=== PATIENT | female | born 2000 | race Caucasian/White ===

== ENCOUNTER 2020-01-24 10:33 | Emergency (ER) | payer MEDICAID, SELFPAY ==
--- NOTE | 2020-01-24 | XR_ITS ---
EXAMINATION: XR TIBIA AND FIBULA, LEFT CLINICAL INFORMATION: Injury. COMPARISON: None TECHNIQUE: AP and lateral views of the left tibia and fibula were obtained. FINDINGS: Alignment is normal at the knee and ankle. The talar dome is well-positioned within the intact ankle mortise. The tibia and fibula are intact. No knee joint effusion. There is minimal soft tissue stranding in the pretibial area of the lower leg. No radiopaque foreign body or soft tissue gas in this area. IMPRESSION: * Minimal soft tissue swelling in the pretibial region of the lower leg. * Bones are normal. No tibia fracture.
[2020-01-24 11:03] VITALS: BP 95/60; PULSE 79; RESP 18; TEMP 36.6; O2SAT 95; BMI 23.1
[2020-01-24 12:00] VITALS: BP 118/77; PULSE 66; RESP 18; TEMP 36.6; O2SAT 100
--- NOTE | 2020-01-24 18:30 | ED.LOWEXIN ---
HPI - Extremity Injury (Lower) General Chief Complaint: Extremity Injury, Lower Stated Complaint: Loo injury work Time Seen by Provider: 01/24/20 11:20 History of Present Illness HPI Narrative: patient was at work this morning and hit her left loo into a metal object and comes here limping and complaining of pain in the left loo, pain is mild and this occurred 3 hours ago Related Data Allergies Allergy/AdvReac Type Severity Reaction Status Date / Time No Known Allergies Allergy Verified 01/24/20 11:03 [No Known Allergies*] Review of Systems Review of Systems: no numbness no weakness no paresthesias no other injury, no shortness of breath, no dizziness PMFSH Past Medical History Source: nursing notes reviewed Medical History (Updated 01/24/20 @ 12:34 by SAJI Montanez) No known health problems Social History Social History Alcohol intake: current Alcohol intake frequency: holidays/special occasions only Alcohol type: hard liquor Smoking Status: Never smoker Use of substances other than those prescribed or required for medical reasons: Yes Substance Use Type: Marijuana Substance Use Frequency: Weekly Advance Directives: No Advance Directives Information Provided: No Physical Exam Vital Signs: Vital Signs: Vital Signs Temp Pulse Resp BP Pulse Ox 01/24/20 12:00 98 F 66 18 118/77 100 01/24/20 11:03 98 F 79 18 95/60 95 Body Mass Index 23.1 general appearance is no acute distress, A&O x3, comfortable appearing and ambulates with slight limp Neck is supple Respiratory no respiratory distress Extremities left anterior lower leg has a small abrasion and there is tenderness and mild ecchymosis in the area but there is full range of motion in the ankle and the knee Neuro no focal deficit Course Course Course Narrative: x-ray of left lower leg was normal Discharge Plan Discharge Clinical Impression: Contusion of left leg Qualifiers: Encounter type: initial encounter Qualified Code(s): S80.12XA - Contusion of left lower leg, initial encounter Patient Disposition: Home, Self-Care Additional Instructions: x-ray of the leg was normal Most likely this is a bruise which will improve rapidly If not better next week follow with [facility] for work-related injuries Return any concerns Referrals: [facility] [Provider Group] - 2 days Stand Alone Forms: Work/School Release Interventions: ED Discharge Assessment Last Done: 01/24/20 12:38 Discharge Date/Time: 01/24/20 12:40
== END 2020-01-24 12:40 | disposition home or self-care (01) ==
PROVIDERS: Emergency Provider Emergency Medicine; PCP Pediatrics
DX: S80.12XA Contusion of left lower leg, initial encounter (principal); S80.812A Abrasion, left lower leg, initial encounter; Y29.XXXA Contact with blunt object, undetermined intent, initial encounter; Y93.9 Activity, unspecified; Y92.9 Unspecified place or not applicable; Y99.0 Civilian activity done for income or pay; F12.90 Cannabis use, unspecified, uncomplicated; Z23 Encounter for immunization
CPT/HCPCS: 73590; 90471; 90715; 99284

== ENCOUNTER 2020-03-02 11:43 | Outpatient (REF) | payer MEDICAID, SELFPAY | END 2020-03-02 11:44 | disposition home or self-care (01) | LOC: HO.LAB 11:43 | PROVIDERS: PCP Pediatrics; Visit Provider Internal Medicine | DX: Z20.828 Contact with and (suspected) exposure to other viral communicable diseases (principal) | CPT/HCPCS: C9803; U0003 ==

== ENCOUNTER 2020-05-25 04:37 | Emergency (ER) | payer MEDICAID, SELFPAY ==
[2020-05-25 05:58] VITALS: BP 104/50; PULSE 84; RESP 16; TEMP 36.7; O2SAT 99; BMI 22.8
--- NOTE | 2020-05-25 06:34 | ED.GENADULT ---
HPI - General Adult General Chief complaint: Allergic Reaction Stated complaint: Allergic reaction Time Seen by Provider: 05/25/20 06:23 Source: patient Mode of arrival: ambulatory Limitations: no limitations History of Present Illness HPI narrative: 20-year-old female who presents to the emergency department for evaluation of allergic reaction secondary to topical exposure to coconut. The patient works at [employer]. 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 She has that whenever she eats anything with coconut in it her throat and mouth get very itchy. She states that her neck and face, and areas that she touched with her glove, became itchy and red. She states she had to leave work early. She came directly to the emergency department. She denied any lightheadedness, dizziness, difficulty swallowing, itchiness in her mouth, tongue swelling, lip swelling, nausea or vomiting associated with the allergic reaction. Patient states she was in her usual state of health prior to this incident. Related Data Previous Rx's Medication Instructions Recorded prednisone 60 mg PO DAILY 4 Days #12 tab 05/25/20 Allergies Allergy/AdvReac Type Severity Reaction Status Date / Time No Known Allergies Allergy Verified 01/24/20 11:03 [No Known Allergies*] Review of Systems Review of Systems: Yes all other systems are reviewed and are negative Neurologic: Reports Abnormal speech present [facility] Past Medical History [facility] Narrative: The patient has no medical problems, she is allergic to coconuts, she denies tobacco and alcohol use. She states she occasionally smokes marijuana. She denies any other drug use Medical History (Updated 05/25/20 @ 06:41 by Jayson Mendoza MD) No known health problems Surgical History (Updated 05/25/20 @ 06:00 by Daija Dorsey) No significant past surgical history Social History Social History Alcohol intake: current Alcohol intake frequency: holidays/special occasions only Alcohol type: hard liquor Smoking Status: Never smoker Substance Use Type: Marijuana Advance Directives: No Advance Directives Information Provided: No Physical Exam Vital Signs: Vital Signs: Last Vital Signs Temp 98.0 F 05/25/20 05:58 Pulse 84 05/25/20 05:58 Resp 16 05/25/20 05:58 BP 104/50 L 05/25/20 05:58 Pulse Ox 99 05/25/20 05:58 Body Mass Index 22.8 Const: General: cooperative and healthy appearing Orientation/consciousness: oriented to person and oriented to place Limitations: no limitations HENMT: Head: Yes normal to inspection, Yes normocephalic and Yes atraumatic Ears: external ears normal General nose exam: Normal external nose present Face and sinus: Yes normal facial exam Mouth: Normal oral and palatal mucosa present Throat: Yes posterior oropharynx normal Eyes: Periorbital: periorbital findings normal Eyelids: Yes eyelids normal Conjunctivae: conjunctivae normal Sclerae: sclerae normal Corneas: corneas normal Pupils: Equal, round and reactive pupils present Direct Ophthalmoscopy: normal light reflex Neck: Neck: Yes full ROM, Yes no lymphadenopathy, Yes no meningeal signs, Yes trachea midline, Yes supple and Yes other (Occasional urticaria lesion on anterior neck, blanching erythema noted) Thyroid: Thyroid normal Lymphatic: no lymphadenopathy noted Chest: Chest palpation & inspection: normal inspection of the chest and normal palpation of entire chest wall Resp: Effort & Inspection: normal respiratory effort and able to speak in complete sentences Auscultation: clear to auscultation bilaterally Cardio: Rate: regular rate Rhythm: regular rhythm Heart sounds: S1 normal heart sound present, S2 normal heart sound present and no murmurs GI: Inspection: Yes normal to inspection Palpation (GI): Soft to palpation, nontender, no guarding, not rigid and No hepatosplenomegaly present : General: Yes no CVA tenderness Back/Spine/Pelvis: Back: no CVA tenderness Skin: Lesions: no lesions Rashes: rashes noted (Urticaria, erythema, anterior neck) Wounds: no wounds Neuro: General: oriented to person, oriented to place and no meningeal signs Cranial nerves: Yes CN's II-XII intact bilaterally and Yes Equal, round and reactive pupils present Cognition (Neuro): normal cognition Speech: Abnormal speech present Motor exam (neuro): 5/5 motor strength present throughout Extrem: General: Yes normal to inspection and Yes full ROM Psych: Appearance: well kempt Mental Status: mental status grossly normal Speech and movement: Normal speech and movement present Affect: normal affect Attitude: cooperative Thought process: Normal thought process present Thought content: Normal thought content present Course Course Course Narrative: 20-year-old female with history of coconut allergy who presents emergency department for evaluation of rash to neck and itchiness after being exposed to a coconut candle at work. The patient's examination did reveal occasional urticarial lesion on her anterior neck with blanching erythema, otherwise was unremarkable. Patient was given Benadryl 25 mg orally and prednisone 60 mg orally. She was advised to take Benadryl 25-50 mg 4 times a day for the next 24 hours for itchiness, she will complete a 5 day course Benadryl 60 mg once a day. The patient was given a note to stay out of work for 1 days she can take Benadryl and she should be able to return to work for her tomorrow evening shift. She was given verbal and printed instructions on allergic reactions. Discharge Plan Discharge Clinical Impression: Allergic reaction, Urticaria Patient Disposition: Home, Self-Care Instructions: Allergies (ED) Additional Instructions: Take Benadryl 25-50 mg 4 times a day for the next 24 hours, this will help with the itchiness. You can take this be on 24 hours for itchiness but she cannot take this at work since it will make you sleepy. Take prednisone 20 mg pills, 3 pills (60 mg) once a day for 4 days. No work tonight but she should be able to work tomorrow evening. Do not take Benadryl at work since this will make you sleepy. Follow-up with your doctor in 2 days. Please return to the emergency department if your symptoms get worse or if you develop any symptoms that are concerning to you. Prescriptions: New prednisone 20 mg tablet 60 mg PO DAILY 4 Days Qty: 12 RF: 0 Stand Alone Forms: Work/School Release
[2020-05-25] MEDS: diphenhydrAMINE HCL 25 MG TABLET PO (06:50)
[2020-05-25] MEDS: predniSONE 20 MG TABLET 60 MG PO (06:51)
== END 2020-05-25 06:55 | disposition home or self-care (01) ==
PROVIDERS: Emergency Provider Emergency Medicine Emergency Medical Services
DX: L50.0 Allergic urticaria (principal)
CPT/HCPCS: 99283; Q0163

== ENCOUNTER 2021-07-13 07:08 | Emergency (ER) | payer MEDICAID, SELFPAY ==
--- NOTE | ~2021-07-13 | XR_ITS ---
EXAMINATION: XR WRIST, RIGHT CLINICAL INFORMATION: Right wrist pain near ulnar styloid tip after fall. Pain radial aspect. COMPARISON: None TECHNIQUE: PA, lateral, oblique, and scaphoid views of the right wrist. FINDINGS: There is irregularity of the waist of the scaphoid with no cortical or trabecular disruption, likely due to the normal undulation of the scaphoid. No fracture or dislocation seen. Intercarpal joint spaces are maintained. No radiopaque foreign body. XR/XR wrist RT 2V IMPRESSION: No acute osseous abnormality of the right wrist.
[2021-07-13 07:21] VITALS: BP 112/87; PULSE 82; RESP 16; TEMP 36.2; O2SAT 97; BMI 24.5
--- NOTE | 2021-07-13 07:21 | ED.UPPEXIN ---
HPI - Extremity Injury (Upper) General Chief Complaint: Extremity Injury, Upper Stated Complaint: Wrist pain Time Seen by Provider: 07/13/21 07:16 Source: patient Mode of arrival: ambulatory Limitations: no limitations History of Present Illness HPI narrative: Patient comes to the emergency room complaining of wrist pain on the right side. Patient states that the day before, her boyfriend tripped, patient held him to avoid him from falling. Patient was able to catch her own weight with her wrist against a wall. Since then her wrist has been hurting. The patient denies any other injuries Related Data Previous Rx's Medication Instructions Recorded prednisone 20 mg tablet 60 mg PO DAILY 4 Days #12 tab 05/25/20 Allergies Allergy/AdvReac Type Severity Reaction Status Date / Time No Known Allergies Allergy Verified 01/24/20 11:03 [No Known Allergies*] Review of Systems Review of Systems: Constitutional : No Weight loss, No Fever, No Chills, No Night Sweats, No Fatigue, No Malaise ENT/Mouth : No Hearing loss, No Ear Pain, No Nasal Congestion, No Sinus Pain, No Hoarseness, No sore throat, No Rhinorrhea, No Swallowing Difficulty Eyes: No Eye Pain, No Swelling, No Redness, No Foreign Body, No Discharge, No Vision Changes Cardiovascular : No Chest Pain, No SOB, No Dyspnea on Exertion, No Orthopnea, No Edema, No Palpitations Respiratory : No Cough, No Sputum, No Wheezing, No Smoke Exposure, No Dyspnea Gastrointestinal : No Nausea, No Vomiting, No Diarrhea, No Constipation, No abdominal Pain, No Hematochezia, No Melena Genitourinary : no irregular bleeding, No Dysuria, No Urinary Frequency, No Hematuria, No Urinary Incontinence, No Urgency, No Flank Pain, No Urinary Flow Changes, No Hesitancy Musculoskeletal : Complaining of right wrist pain, No Myalgias, No Joint Swelling Skin : No Skin Lesions, No rash Neuro : No Weakness, No Numbness, No Paresthesias, No Loss of Consciousness, No Dizziness, No Headache Psych : No Anxiety/Panic, No Depression, No SI/HI/AH/VH, No Social Issues, Heme/Lymph: No Bruising, No Bleeding,No Lymphadenopathy Endocrine : No Polyuria, No Polydipsia, No Temperature Intolerance PMFSH Past Medical History Medical History No known health problems Surgical History No significant past surgical history Social History Social History Alcohol intake: current Alcohol intake frequency: holidays/special occasions only Alcohol type: hard liquor Substance Use Type: Marijuana Advance Directives: No Advance Directives Information Provided: No Physical Exam Vital Signs: Vital Signs: Last Vital Signs Temp 97.2 F 07/13/21 07:21 Pulse 82 07/13/21 07:21 Resp 16 07/13/21 07:21 BP 112/87 07/13/21 07:21 Pulse Ox 97 07/13/21 07:21 BMI result Body Mass Index 24.5 Const: Other: Appearance: Alert. Oriented X3. No acute distress. Eyes: Pupils equal, round and reactive to light. ENT: Pharynx normal. Neck: Normal inspection. Neck supple. No lymph nodes noted. No crepitus CVS: Normal heart rate and rhythm. Pulses normal. Normal S1 and S2 Respiratory: No respiratory distress. Breath sounds normal. No Wheezing. No rales Abdomen: Soft and nontender. No rigidity. No distention. Skin: Skin warm and dry. Normal skin color. Normal skin turgor. Extremities: No lower extremity edema. Patient is able to flex and extend/abduct/adduct all fingers, patient is able to flex and extend the wrist, mild pain to palpation over the radial aspect of the wrist, no snuffbox tenderness Neuro: Oriented X 3. No motor deficit. No sensory deficit. Moving all extremities. No slurred speech. CN 2 through 12 grossly intact Psych: calm, cooperative, normal affect Course Course Course Narrative: Patient has not taking any medications in the injury happened. Patient given 1 dose of p.o. ibuprofen, x-ray pending X-rays negative for acute pathology. Patient likely has a wrist sprain MDM - Extremity Injury (Upper) Imaging Data Wrist x-ray: Radiologist's impression: There is irregularity of the waist of the scaphoid with no cortical or trabecular disruption, likely due to the normal undulation of the scaphoid. No fracture or dislocation seen. Intercarpal joint spaces are maintained. No radiopaque foreign body.? XR/XR wrist RT 2V IMPRESSION: No acute osseous abnormality of the right wrist. Discharge Plan Discharge Clinical Impression: Right wrist sprain Patient Disposition: Home, Self-Care Instructions: Wrist Sprain (ED) Prescriptions: No Action prednisone 20 mg tablet 60 mg PO DAILY 4 Days Qty: 12 0RF
== END 2021-07-13 08:15 | disposition home or self-care (01) ==
PROVIDERS: Emergency Provider Emergency Medicine
DX: S63.501A Unspecified sprain of right wrist, initial encounter (principal); W50.0XXA Accidental hit or strike by another person, initial encounter; Y93.89 Activity, other specified; Y92.9 Unspecified place or not applicable; Y99.9 Unspecified external cause status
CPT/HCPCS: 73100; 99283

== ENCOUNTER 2021-09-19 06:42 | Emergency (ER) | payer MEDICAID, SELFPAY ==
[2021-09-19 06:55] VITALS: BP 115/79; PULSE 72; RESP 18; TEMP 36.8; O2SAT 99; BMI 24.5
[2021-09-19 07:15] LABS: Appearance Urine HAZY; Color Urine YELLOW; Glucose Urine UA NEG (NEG); Leukocyte Esterase Urine 1+ (NEG); Nitrite Urine NEG (NEG); Specific Gravity - Urine >= 1.030 (1.005-1.025); UACC Culture Trigger YES; Urine Blood 1+ (NEG); Urine Ketones NEG (NEG); Urine Protein TRACE MG/DL (NEG-TRACE)
[2021-09-19 07:21] LABS: UPreg QC Valid YES; Urine Pregnancy NEGATIVE (NEGATIVE)
--- NOTE | 2021-09-19 07:28 | ED_ITS ---
HPI - General Adult General Chief complaint: General Medical Stated complaint: vaginal pain Time Seen by Provider: 09/19/21 07:28 Source: patient Mode of arrival: ambulatory History of Present Illness HPI narrative: 21-year-old female without significant past medical history of herpes but states she did have gonorrhea in her late teens who presents with the feeling of vaginal dryness and discomfort during sexual intercourse and has noted a yellowish discharge from her vagina. She discussed with her boyfriend who reports that he is having burning from his penis as well. Related Data Previous Rx's Medication Instructions Recorded prednisone 20 mg tablet 60 mg PO DAILY 4 Days #12 tab 05/25/20 doxycycline hyclate 100 mg capsule 100 mg PO BID 7 Days #14 cap 09/19/21 Allergies Allergy/AdvReac Type Severity Reaction Status Date / Time No Known Allergies Allergy Verified 01/24/20 11:03 [No Known Allergies*] Review of Systems Review of Systems: Pertinent positives and negatives as stated in HPI 10 point review of systems is otherwise negative. PMFSH Past Medical History Source: nursing notes reviewed Medical History No known health problems Surgical History No significant past surgical history Social History Social History Alcohol intake: current Alcohol intake frequency: holidays/special occasions only Alcohol type: hard liquor Substance Use Type: Marijuana Advance Directives: No Advance Directives Information Provided: Yes Physical Exam ED Vital Signs: Vital Signs - 24 hr 09/19/21 06:55 Temperature 98.2 F Pulse Rate 72 Respiratory Rate 18 Blood Pressure 115/79 Pulse Oximetry 99 BMI result Body Mass Index 24.5 VITAL SIGNS: Reviewed. GENERAL: Well developed, well nourished, in no acute distress. HEAD: Normocephalic/atraumatic EYES: PERRLA, EOMI EARS: Ext canals without abnormality OROPHARYNX: no oral lesions noted, posterior pharynx clear LUNGS: Normal breath sounds. SpO2<99> CARDIOVASCULAR: Regular rate and rhythm without noted murmurs ABDOMEN: Soft, non-tender, non-distended with bowel sounds. 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 EXTREMITIES: No cyanosis, clubbing or edema. SKIN: Inspection of the skin reveals no rashes NEUROLOGIC: Alert and oriented x 4. Strength and sensation to light touch were grossly intact x 4. Course Course Course Narrative: 21-year-old female with history and clinical presentation suspicious for STI but possibility early yeast infection on review of all investigations patient is noted to have leukocyte esterase and will be treated presumptively for sexually transmitted infection as well as her UTI. Medical Decision Making Lab Data Labs: Lab Results 09/19/21 09/19/21 Range/Units 07:07 07:07 Urine Color YELLOW Urine Appearance HAZY Urine pH 6.0 (5.0-8.0) Ur Specific [place] >= 1.030 H (1.005-1.025) Urine Protein TRACE (NEG-TRACE) MG/DL Urine Glucose (UA) NEG (NEG) MG/DL Urine Ketones NEG (NEG) MG/DL Urine Blood 1+ H (NEG) Urine Nitrite NEG (NEG) Ur Leukocyte Esterase 1+ H (NEG) Urine Test NEGATIVE (NEGATIVE) Discharge Plan Discharge Clinical Impression: UTI (urinary tract infection), Vaginal discharge Patient Disposition: Home, Self-Care Instructions: Urinary Incontinence (ED), Vaginal Discharge (ED) Additional Instructions: 1. You have been treated for sexually transmitted infection, please follow-up through the patient portal to obtain your final results. Your partner needs to be treated as well, you will need to avoid sexual intercourse with her partner for 1 week. If the results of your sexually transmitted infection or negative please stop the antibiotic that you have been provided after 3 days (this antibiotic is also treating your urinary tract infection). 2. If despite all treatment your symptoms continue to worsen there is a suspicion you may have a yeast infection and can use the [id number] generic version of Monistat is, recommend using the 5 day treatment. Return to the ER for worsening symptoms. Prescriptions: New doxycycline hyclate 100 mg capsule 100 mg PO BID 7 Days Qty: 14 0RF No Action prednisone 20 mg tablet 60 mg PO DAILY 4 Days Qty: 12 0RF
[2021-09-19 07:29] LABS: Bacteria Urine 1+ /LPF; Mucus Urine 2+ /LPF; Squamous Epithelial Cell Urine 2+ /LPF
[2021-09-19] MEDS: cefTRIAXone sodium 500 MG, Lidocaine HCl 1 % MPF 1 ML IM (07:48)
[2021-09-19 09:39] LABS: CT PCR NOT DETECTED (Not Detect.); NG PCR NOT DETECTED (Not Detect.)
== END 2021-09-19 07:59 | disposition home or self-care (01) ==
PROVIDERS: Emergency Provider Student in an Organized Health Care Education/Training Program
DX: N39.0 Urinary tract infection, site not specified (principal); N89.8 Other specified noninflammatory disorders of vagina
CPT/HCPCS: 81001; 81025; 87086; 87491; 87591; 96372; 99282; 99284; J0696